=== PATIENT | male | born 1930 | race Caucasian/White ===

== ENCOUNTER 2018-12-07 19:19 | Emergency (ER) | payer MEDICARE, BC ==
[2018-12-07 19:25] VITALS: BP 175/64; PULSE 85; RESP 20; TEMP 98.4
[2018-12-07] MEDS ORDERED: DIPH,PERTUS(ACELL)TETVAC-LF 0.5 ML VIAL IM ONE (20:56)
[2018-12-07] MEDS ORDERED: GELATIN SPONGE,ABSORB (LARGE) 1 EACH SPONGE TOPICAL STA (21:24)
--- NOTE | 2018-12-07 22:20 | ED ---
General Adult HPI - General Chief complaint: Wound/Laceration Stated complaint: finger lac Time Seen by Provider: 12/07/18 20:16 Source: patient, family Mode of arrival: ambulatory Limitations: no limitations - History of Present Illness Initial comments: Patient is a 88-year-old male presents emergency department with a for a superficial laceration to left hand. Patient states that he was working in the yard when he is clippers and he lacerated his left hand. Patient states that he is on Coumadin and could not get the bleeding to stop. Patient states that he came to the emergency department due to uncontrolled bleeding. Patient reports his tetanus shot is not up-to-date. Patient denies any numbness or tingling in his fingers or hand. Patient denies any tenderness or muscle weakness. Patient reports full range of motion of the left hand. Patient denies any fever, light headedness, nausea, vomiting, dizziness. - Related Data Home Medications Medication Instructions Recorded Confirmed Atorvastatin [Lipitor] 40 mg PO HS 10/21/18 10/21/18 Carvedilol [Coreg] 3.125 mg PO BID 10/21/18 10/21/18 Cholecalciferol [Vitamin D3] 1,000 unit PO DAILY 10/21/18 10/21/18 Famotidine [Pepcid] 20 mg PO DAILY 10/21/18 10/21/18 Furosemide [Lasix] 20 mg PO DAILY 10/21/18 10/21/18 Tamsulosin [Flomax] 0.4 mg PO HS 10/21/18 10/21/18 Warfarin [Coumadin] 1.25 mg PO MOFR 10/21/18 10/21/18 Warfarin [Coumadin] 2.5 mg PO SUTUWETHSA 10/21/18 10/21/18 hydrALAZINE HCL [Apresoline] 12.5 mg PO BID 10/21/18 10/21/18 Allergies Allergy/AdvReac Type Severity Reaction Status Date / Time No Known Allergies Allergy Verified 12/07/18 19:25 Review of Systems ROS Statement: Those systems with pertinent positive or pertinent negative responses have been documented in the HPI. ROS Other: All systems not noted in ROS Statement are negative. Past Medical History Past Medical History: Atrial Fibrillation, Hypertension History of Any Multi-Drug Resistant Organisms: None Reported Past Surgical History: Hernia Repair Additional Past Surgical History / Comment(s): PACE maker, AAA with repair Past Psychological History: No Psychological Hx Reported Smoking Status: Never smoker Past Alcohol Use History: Occasional Past Drug Use History: None Reported General Exam Limitations: no limitations General appearance: alert, in no apparent distress Head exam: Present: atraumatic, normocephalic, normal inspection Eye exam: Present: normal appearance Pupils: Present: normal accommodation ENT exam: Present: normal exam Neck exam: Present: normal inspection Respiratory exam: Present: normal lung sounds bilaterally Cardiovascular Exam: Present: regular rate, normal rhythm, normal heart sounds Left Elbow exam: Present: normal inspection, full ROM Forearm Wrist exam: Present: full ROM Hand Wrist exam: Present: laceration (Superficial laceration near the fifth MCP joint.) Vascular: Present: normal capillary refill, radial pulse, ulnar pulse Neurological exam: Present: alert, oriented X3 Psychiatric exam: Present: normal affect, normal mood Skin exam: Present: warm, normal color Course Vital Signs 12/07/18 19:22 Temperature 98.4 F Pulse Rate 85 Respiratory 20 Rate Blood Pressure 175/64 O2 Sat by Pulse 95 Oximetry Medical Decision Making - Medical Decision Making Patient is a 88-year-old male presenting to emergency Department with a superficial laceration on the left hand. Gelfoam and gauze were used to contain the bleeding. The laceration was not through all the skin layers. Patient was also given a tetanus prophylaxis. Gelfoam was used and contain the bleeding. Patient advised to follow with primary care. Patient advised to return to the emergency department if symptoms worsen. Patient left before Dr. Blood was able to examine him. Disposition Clinical Impression: Laceration Disposition: HOME SELF-CARE Condition: Stable Additional Instructions: Please follow proper wound care instructions. Please return to emergency department if symptoms worsen. Is patient prescribed a controlled substance at d/c from ED?: No Referrals: Luis Willis MD [Primary Care Provider] - 1-2 days Time of Disposition: 22:06
== END 2018-12-07 22:16 | disposition home or self-care (01) ==
LOC: EC 19:19
DX: S61.412A Laceration without foreign body of left hand, initial encounter (principal); I48.91 Unspecified atrial fibrillation; I10 Essential (primary) hypertension; Z79.01 Long term (current) use of anticoagulants; Z79.899 Other long term (current) drug therapy; Z95.0 Presence of cardiac pacemaker; Z23 Encounter for immunization; W45.8XXA Other foreign body or object entering through skin, initial encounter; Y93.H2 Activity, gardening and landscaping; Y92.096 Garden or yard of other non-institutional residence as the place of occurrence of the external cause
CPT/HCPCS: 90471; 90715; 99282